=== PATIENT | female | born 1985 | race Two or more races ===

== ENCOUNTER 2021-08-24 10:07 | Inpatient (IN) | payer OTHER ==
[~2021-08-24] VITALS: Ht 160 cm; Wt 68.9 kg
[2021-09-08] MEDS ORDERED: PRENATAL TABLE1 EAC1 PO (08:29)
== END 2021-09-10 14:33 | disposition home or self-care (01) | DRG 807 ==
LOC: LDR 09-05 10:15 → OB/GYN 09-08 19:17
PROVIDERS: ADMIT Obstetrics & Gynecology; ATTEND Obstetrics & Gynecology
PROC: 10E0XZZ Delivery of Products of Conception, External Approach (ICD-10-PCS; principal; 2021-09-08)
PROC: 0KQM0ZZ Repair Perineum Muscle, Open Approach (ICD-10-PCS; 2021-09-08)
PROC: 4A1HXCZ Monitoring of Products of Conception, Cardiac Rate, External Approach (ICD-10-PCS; 2021-09-08)
PROC: 3E033VJ Introduction of Other Hormone into Peripheral Vein, Percutaneous Approach (ICD-10-PCS; 2021-09-08)
DX: O70.1 Second degree perineal laceration during delivery (principal); Z37.0 Single live birth; Z3A.40 40 weeks gestation of pregnancy; Z20.822 Contact with and (suspected) exposure to COVID-19

== ENCOUNTER 2021-08-24 12:17 | Outpatient (CLI) | payer OTHER | END 2021-08-24 14:02 | disposition home or self-care (01) | LOC: NST 12:17 | PROVIDERS: ATTEND Obstetrics & Gynecology | DX: Z34.83 Encounter for supervision of other normal pregnancy, third trimester (principal) ==

== ENCOUNTER 2021-09-03 10:16 | Outpatient (CLI) | payer OTHER | END 2021-09-03 11:28 | disposition home or self-care (01) | LOC: NST 10:16 | PROVIDERS: ATTEND Obstetrics & Gynecology | DX: Z34.83 Encounter for supervision of other normal pregnancy, third trimester (principal) ==